=== PATIENT | female | born 1965 | race Caucasian/White ===

== ENCOUNTER 2018-11-26 12:07 | Emergency (ER) | payer BC ==
[~2018-11-26] VITALS: Ht 162.6 cm; Wt 61.7 kg
[2018-11-26 13:25] LABS: CALCIUM 8.9 mg/dL (8.5-10.1); CARBON DIOXIDE 31.8 mmol/L (21-32); CHLORIDE SERUM 107 mmol/L (98-107); CREATININE SERUM 0.7 mg/dL (0.6-1.0); GFR1 > 60 mL/min; GLUCOSE SERUM 123 mg/dL (74-106); POTASSIUM SERUM 4.2 mmol/L (3.5-5.1); SODIUM SERUM 145 mmol/L (136-145)
[2018-11-26 13:26] LABS: BASOPHIL % 0.4 % (0-2); PLATELET COUNT 360 x10^3mcL (130-400)
[2018-11-26 13:29] LABS: RED CELL DISTRIBUTION WIDTH 23.5 % (11.5-14.5)
[2018-11-26 13:31] LABS: ALBUMIN 4.3 g/dL (3.4-5.0); ALKALINE PHOSPHATASE 93 U/L (46-116); ALT/SGPT 21 U/L (14-59); AST/SGOT 26 U/L (15-37); BILIRUBIN TOTAL 0.23 mg/dL (0.20-1.00); LIPASE 122 IU/L (73-393); TOTAL PROTEIN, SERUM 8.2 g/dL (6.4-8.2)
[2018-11-26 13:56] LABS: rbc morphology (normal/abnorm) ABNORMAL (NORMAL)
[2018-11-26 14:45] VITALS: BP 136/72
== END 2018-11-26 14:45 | disposition home or self-care (01) ==
LOC: ED 12:07
PROVIDERS: Emergency Medicine
DX: R53.1 Weakness (principal); D50.9 Iron deficiency anemia, unspecified
CPT/HCPCS: 36415

== ENCOUNTER 2018-12-23 21:50 | Emergency (ER) | payer BC ==
[~2018-12-23] VITALS: Ht 165.1 cm; Wt 62.1 kg
[2018-12-23 21:58] VITALS: Ht 165.1 cm; Wt 62.1 kg
[2018-12-24 00:23] VITALS: BP 140/91
== END 2018-12-24 00:23 | disposition home or self-care (01) ==
LOC: ED 21:50
DX: M25.511 Pain in right shoulder (principal)